=== PATIENT | female | born 1940 | race Caucasian/White ===

== ENCOUNTER 2020-10-07 10:28 | Emergency (ER) | payer MEDICARE ==
[~2020-10-07] VITALS: Ht 165.1 cm; Wt 71.2 kg
--- NOTE | 2020-10-07 11:20 | NUR ---
PATIENT UNSURE WHY SHE'S HERE. DENIES ANY COMPLAINTS.
--- NOTE | 2020-10-07 11:30 | NUR ---
CALLED JILLIAN MOLINA MD AND SPOKE TO DR. MATHIS.
--- NOTE | 2020-10-07 13:13 | NUR ---
Patient a/ox4, breathing even and unlabored, no sob noted. Needs attended. Patient discharged to home in stable condition. Written and verbal after care instructions given. Patient verbalizes understanding of instruction.
[2020-10-07 13:17] VITALS: BP 142/82
== END 2020-10-07 13:17 | disposition home or self-care (01) ==
LOC: ER 10:31
DX: I10 Essential (primary) hypertension (principal); J45.909 Unspecified asthma, uncomplicated; R00.0 Tachycardia, unspecified; Z02.89 Encounter for other administrative examinations
CPT/HCPCS: 71045-TC